=== PATIENT | female | born 1980 | race American Indian/Alaskan Native ===

== ENCOUNTER 2017-01-22 13:05 | Emergency (ER) | payer MEDICAID ==
[2017-01-22] MEDS ORDERED: TORADOL IM ONE (15:52)
--- NOTE | 2017-01-22 15:53 | Emergency Department Report ---
ED Lower Extremity HPI - General Chief Complaint: Extremity Injury, Lower Stated Complaint: RT LEG INJURY Time Seen by Provider: 01/22/17 15:52 Source: patient Mode of arrival: Ambulatory Limitations: No Limitations - History of Present Illness Initial Comments: Patient reports she was sitting in the physician's waiting room when she was struck the right leg by the dry wall ceiling. She denies LOC or difficulty ambulating MD Complaint: leg injury (right) Onset/Timin -: hour(s) Injury: Leg: Right Type of Injury: unknown Place: other (physician's office) Severity: severe Severity scale (0 -10): 8 Improves With: rest Worsens With: weight bearing Context: direct blow Other Symptoms: other (none) Associated Symptoms: ambulatory. denies: snap/pop sensation, swelling, numbness , tingling, unable to bear weight, able to partially bear weight Treatments Prior to Arrival: other (none) - Related Data Previous Rx's Medication Instructions Recorded Last Taken Type Clindamycin [Clindamycin CAP] 300 mg PO Q6H #40 capsule 05/08/16 Unknown Rx Ibuprofen [Motrin] 600 mg PO Q8H PRN #40 tablet 05/08/16 Unknown Rx Acetaminophen/Codeine 1 tab PO Q6H PRN #20 tab 08/30/16 Unknown Rx [Acetaminophen-Codeine #3 TAB] Clindamycin [Clindamycin CAP] 300 mg PO BID #20 capsule 08/30/16 Unknown Rx Ibuprofen [Motrin 800 MG tab] 800 mg PO Q8HR PRN #30 tablet 01/22/17 Unknown Rx Allergies Allergy/AdvReac Type Severity Reaction Status Date / Time Penicillins AdvReac Unknown Verified 08/30/16 10:51 ED Review of Systems ROS: Stated complaint: RT LEG INJURY Other details as noted in HPI Constitutional: denies: chills, fever, malaise Respiratory: denies: cough, orthopnea, shortness of breath, SOB with exertion, SOB at rest, stridor, wheezing Cardiovascular: denies: chest pain, palpitations, dyspnea on exertion, orthopnea , edema, syncope Gastrointestinal: denies: abdominal pain, nausea, vomiting, diarrhea Musculoskeletal: arthralgia (right leg). denies: back pain, joint swelling, myalgia Skin: denies: rash, lesions, change in color, change in hair/nails, pruritus Neurological: denies: headache, weakness, numbness, paresthesias, confusion, abnormal gait, vertigo Hematological/Lymphatic: denies: easy bleeding, easy bruising, swollen glands ED Past Medical Hx - Past Medical History Hx Hypertension: Yes - Surgical History Additional Surgical History: TONSILS. - Social History Smoking Status: Never Smoker Substance Use Type: None - Medications Home Medications: Home Medications Medication Instructions Recorded Confirmed Last Taken Type Clindamycin [Clindamycin CAP] 300 mg PO Q6H #40 capsule 05/08/16 Unknown Rx Ibuprofen [Motrin] 600 mg PO Q8H PRN #40 tablet 05/08/16 Unknown Rx Acetaminophen/Codeine 1 tab PO Q6H PRN #20 tab 08/30/16 Unknown Rx [Acetaminophen-Codeine #3 TAB] Clindamycin [Clindamycin CAP] 300 mg PO BID #20 capsule 08/30/16 Unknown Rx Ibuprofen [Motrin 800 MG tab] 800 mg PO Q8HR PRN #30 tablet 01/22/17 Unknown Rx ED Physical Exam - General Limitations: No Limitations General appearance: alert, in no apparent distress - Head Head exam: Present: atraumatic - Eye Eye exam: Present: normal appearance Pupils: Present: normal accommodation - ENT ENT exam: Present: normal exam - Neck Neck exam: Present: normal inspection, full ROM. Absent: tenderness, meningismus, lymphadenopathy, thyromegaly - Respiratory Respiratory exam: Present: normal lung sounds bilaterally. Absent: respiratory distress, wheezes, rales, rhonchi, stridor, chest wall tenderness, accessory muscle use, decreased breath sounds, prolonged expiratory - Cardiovascular Cardiovascular Exam: Present: regular rate, normal heart sounds. Absent: systolic murmur, diastolic murmur, rubs, gallop, clicks, JVD, S3 - Extremities Exam Extremities exam: Present: normal inspection, full ROM, normal capillary refill. Absent: tenderness, pedal edema, joint swelling, calf tenderness - Expanded Lower Extremity Exam Right Hip exam: Present: normal inspection, full ROM, pelvic stability Upper Leg exam: Present: normal inspection, full ROM. Absent: tenderness, swelling, abrasion, laceration, ecchymosis, deformity, crepidus, dislocation, erythema Knee exam: Present: normal inspection, full ROM, tenderness (with palpation to medial), full knee extension. Absent: swelling, abrasion, laceration, ecchymosis, deformity, crepidus, dislocation, erythema, effusion, pain w/ pronation/supination, posterior draw sign, pain/laxity with valgus, pain/laxity with varus Neuro vascular tendon exam: Present: no vascular compromise. Absent: pulse deficit, abnormal cap refill, motor deficit, sensory deficit, tendon deficit, extremity cold to touch, pallor, abnormal 2-point discrimination, decreased fine /light touch, foot drop, peroneal nerve deficit, significant pain with passive ROM of distal joint Gait: Positive: observed and normal - Back Exam Back exam: Present: normal inspection, full ROM. Absent: tenderness, CVA tenderness (R), CVA tenderness (L), muscle spasm - Neurological Exam Neurological exam: Present: alert, oriented X3, CN II-XII intact, normal gait, reflexes normal. Absent: motor sensory deficit - Skin Skin exam: Present: warm, dry, intact, normal color. Absent: rash ED Course Vital Signs 01/22/17 13:56 Temperature 98.0 F Pulse Rate 114 H Respiratory 20 Rate Blood Pressure 144/86 O2 Sat by Pulse 98 Oximetry - Reevaluation(s) Reevaluation #1: 01/22/17 16:14 analgesic and radiology study ordered ED Lower Extremity MDM - Radiology Data Radiology results: image reviewed Right knee: Periarticular degenerative spurs are identified involving the medial and lateral joint compartments. Articular margins are smooth. The joint spaces are preserved. Minimal meniscal calcification is noted in the medial compartment. The knee is aligned. No swelling or effusion. Impression: Mild degenerative changes. No acute findings. - Medical Decision Making During the course of ED, analgesic and radiology studies were ordered. The study revealed mild degenerative changes. No acute findings. She was sent home with a prescription for Ibuprofen, instructed to follow up with the selective referral given at discharge, she verbalized understanding - Differential Diagnosis Right Knee Pain, Right Knee Fracture Critical care attestation.: If time is entered above; I have spent that time in minutes in the direct care of this critically ill patient, excluding procedure time. ED Disposition Clinical Impression: Right knee pain Qualifiers: Chronicity: acute Qualified Code(s): M25.561 - Pain in right knee Disposition: DISCHARGED TO HOME OR SELFCARE Is pt being admited?: No Does the pt Need Aspirin: No Condition: Stable Instructions: Arthralgia (ED) Additional Instructions: Take medication as directed. Follow up with the selective referral given at discharge Prescriptions: Ibuprofen [Motrin 800 MG tab] 800 mg PO Q8HR PRN #30 tablet PRN Reason: Pain Referrals: PRIMARY CARE, [Primary Care Provider] - 3-5 Days MAX DIEGO MD [Staff Physician] - 3-5 Days Forms: Work/School Release Form(ED) Time of Disposition: 17:08
--- NOTE | 2017-01-22 16:53 | XRay Report ---
Right knee: Periarticular degenerative spurs are identified involving the medial and lateral joint compartments. Articular margins are smooth. The joint spaces are preserved. Minimal meniscal calcification is noted in the medial compartment. The knee is aligned. No swelling or effusion. Impression: Mild degenerative changes. No acute findings.
[2017-01-22 17:26] VITALS: BP 131/85
== END 2017-01-22 17:22 | disposition home or self-care (01) ==
LOC: ED 13:05
DX: M25.561 Pain in right knee (principal); I10 Essential (primary) hypertension; Z88.0 Allergy status to penicillin; W22.8XXA Striking against or struck by other objects, initial encounter; Y93.89 Activity, other specified; Y99.9 Unspecified external cause status; Y92.89 Other specified places as the place of occurrence of the external cause
CPT/HCPCS: 73562; 96372; 99283; J1885

== ENCOUNTER 2017-02-20 10:06 | Emergency (ER) | payer MEDICAID ==
[2017-02-20 10:30] VITALS: BP 145/94
--- NOTE | 2017-02-20 11:50 | Emergency Department Report ---
ED Headache HPI - General Chief Complaint: Headache Stated Complaint: SEVERE HEADACHE /BACK PAIN Time Seen by Provider: 02/20/17 11:32 - History of Present Illness Initial Comments: 36-year-old female past medical history migraines, hypertension, obesity presents with complaint of moderate headache since yesterday, denies any associated nausea vomiting photo or phonophobia no neck rigidity reported no fever no chills no chest pain or shortness of breath. Patient denies any head trauma. And is awake alert and oriented 3 does not appear to be in acute distress denies any associated dizziness. Headache currently 7 out of 10. States that she took Tylenol PM last night with mild relief of her headache. Denies any blurry vision. Headache came on gradually throughout yesterday. Radiates from front to the back. Waxes and wanes in intensity consistent with prior migraine headaches. Timing/Duration: 24 hours, waxing and waning Head Injury Location: frontal Recent Head Trauma: occasional headaches Associated Symptoms: denies symptoms Allergies/Adverse Reactions: Allergies Penicillins Adverse Reaction (Verified 08/30/16 10:51) Unknown Home Medications: Ambulatory Orders Clindamycin [Clindamycin CAP] 300 mg PO Q6H #40 capsule 05/08/16 Ibuprofen [Motrin] 600 mg PO Q8H PRN #40 tablet 05/08/16 Acetaminophen/Codeine [Tylenol /Codeine # 3 tab] 1 tab PO Q6H PRN #20 tab Clindamycin [Clindamycin CAP] 300 mg PO BID #20 capsule 08/30/16 Ibuprofen [Motrin 800 MG tab] 800 mg PO Q8HR PRN #30 tablet 01/22/17 Naproxen [Naprosyn TAB] 500 mg PO BID PRN #20 tablet 02/20/17 ED Review of Systems ROS: Stated complaint: SEVERE HEADACHE /BACK PAIN Other details as noted in HPI Constitutional: denies: chills, fever Eyes: denies: eye pain, eye discharge, vision change ENT: denies: ear pain, throat pain Respiratory: denies: cough, shortness of breath, wheezing Cardiovascular: denies: chest pain, palpitations Endocrine: no symptoms reported Gastrointestinal: denies: abdominal pain, nausea, diarrhea Genitourinary: denies: urgency, dysuria, discharge Musculoskeletal: denies: back pain, joint swelling, arthralgia Skin: denies: rash, lesions Neurological: headache. denies: weakness, paresthesias Psychiatric: denies: anxiety, depression Hematological/Lymphatic: denies: easy bleeding, easy bruising ED Past Medical Hx - Past Medical History Previous Medical History?: Yes Hx Hypertension: Yes Hx Headaches / Migraines: Yes - Surgical History Past Surgical History?: Yes Additional Surgical History: TONSILS. - Social History Smoking Status: Never Smoker Substance Use Type: None - Medications Home Medications: Home Medications Medication Instructions Recorded Confirmed Last Taken Type Clindamycin [Clindamycin CAP] 300 mg PO Q6H #40 capsule 05/08/16 Unknown Rx Ibuprofen [Motrin] 600 mg PO Q8H PRN #40 tablet 05/08/16 Unknown Rx Acetaminophen/Codeine [Tylenol 1 tab PO Q6H PRN #20 tab 08/30/16 Unknown Rx /Codeine # 3 tab] Clindamycin [Clindamycin CAP] 300 mg PO BID #20 capsule 08/30/16 Unknown Rx Ibuprofen [Motrin 800 MG tab] 800 mg PO Q8HR PRN #30 tablet 01/22/17 Unknown Rx Naproxen [Naprosyn TAB] 500 mg PO BID PRN #20 tablet 02/20/17 Unknown Rx ED Physical Exam - General Limitations: No Limitations General appearance: alert, in no apparent distress - Head Head exam: Present: atraumatic, normocephalic - Eye Eye exam: Present: normal appearance, PERRL, EOMI - ENT ENT exam: Present: mucous membranes moist - Neck Neck exam: Present: normal inspection - Respiratory Respiratory exam: Present: normal lung sounds bilaterally. Absent: respiratory distress - Cardiovascular Cardiovascular Exam: Present: regular rate, normal rhythm. Absent: systolic murmur, diastolic murmur, rubs, gallop - GI/Abdominal GI/Abdominal exam: Present: soft, normal bowel sounds - Extremities Exam Extremities exam: Present: normal inspection - Back Exam Back exam: Present: normal inspection - Neurological Exam Neurological exam: Present: alert, oriented X3, CN II-XII intact, normal gait - Expanded Neurological Exam Expanded Patient oriented to: Present: person, place, time Cerebellar function: Finger to Nose: Normal, Heel to Null: Normal, [place]: Normal Sensory exam: Upper Extremity Light Touch: Normal, Lower Extremity Light Touch: Normal Motor strength exam: RUE: 5, LUE: 5, RLE: 5, LLE: 5 Best Eye Response ([place]): (4) open spontaneously Best Motor Response ([place]): (6) obeys commands Best Verbal Response ([place]): (5) oriented [place] Total: 15 - Psychiatric Psychiatric exam: Present: normal affect, normal mood - Skin Skin exam: Present: warm, dry, intact, normal color. Absent: rash ED Course Vital Signs 02/20/17 10:25 Temperature 98.2 F Pulse Rate 63 Respiratory 18 Rate Blood Pressure 145/94 O2 Sat by Pulse 100 Oximetry ED Medical Decision Making - Medical Decision Making A/P: Migraine headache 1-patient has no neurological deficits on clinical exam has not taken any NSAIDs for this headache will give trial of naproxen 2-will refer patient to primary care doctor and she states she does not currently have one Critical care attestation.: If time is entered above; I have spent that time in minutes in the direct care of this critically ill patient, excluding procedure time. ED Disposition Clinical Impression: Migraine Qualifiers: Migraine type: without aura Status migrainosus presence: without status migrainosus Intractability: not intractable Qualified Code(s): G43.009 - Migraine without aura, not intractable, without status migrainosus Disposition: DISCHARGED TO HOME OR SELFCARE Is pt being admited?: No Does the pt Need Aspirin: No Condition: Stable Instructions: Migraine Headache (ED) Prescriptions: Naproxen [Naprosyn TAB] 500 mg PO BID PRN #20 tablet PRN Reason: Headache Referrals: OSCAR JOHNSON MD [Staff Physician] - 3-5 Days [facility] [Provider Group] - 3-5 Days Forms: Work/School Release Form(ED) Time of Disposition: 12:21
[2017-02-20 12:01] LABS: Bacteria,Urine 1+ /HPF (Negative); Bilirubin,Urine NEG (Negative); Blood,Urine MOD (Negative); Ketones,Urine NEG (Negative); Leukocyte Esterase,Urine NEG (Negative); Nitrite,Urine NEG (Negative); Protein,Urine <15 mg/dL mg/dL (Negative); Urobilinogen,Urine < 2.0 mg/dL (<2.0)
== END 2017-02-20 12:30 | disposition home or self-care (01) ==
LOC: ED 10:06
DX: G43.009 Migraine without aura, not intractable, without status migrainosus (principal); I10 Essential (primary) hypertension
CPT/HCPCS: 81001; 81025; 99283

== ENCOUNTER 2018-06-04 16:03 | Emergency (ER) | payer SELFPAY ==
[2018-06-04 16:31] VITALS: BP 123/68
== END 2018-06-04 20:00 | disposition left against medical advice (07) ==
LOC: ED 16:03
DX: J02.9 Acute pharyngitis, unspecified (principal); Z53.21 Procedure and treatment not carried out due to patient leaving prior to being seen by health care provider